=== PATIENT | female | born 1980 | race Caucasian/White ===

== ENCOUNTER 2017-08-26 03:00 | Observation (INO) | payer MEDICARE, OTHER ==
[~2017-08-26] VITALS: Ht 177.8 cm; Wt 73.6 kg
[2017-08-26] VITALS (12 sets, daily range): BP systolic 90–108; BP diastolic 51–57; PULSE 70–104; TEMP 97–102
[2017-08-26] MEDS ORDERED: TOPAMAX200 MG PO (04:26)
[2017-08-26] MEDS ORDERED: LYRICA 150MG C150 MG PO (04:26)
[2017-08-26] MEDS ORDERED: CYMBALTA 60MG60 MG PO (04:27)
[2017-08-26] MEDS ORDERED: LYRICA300 MG PO (04:28)
[2017-08-27 04:24] VITALS: BP 100/58; PULSE 70; TEMP 98.1
[2017-08-27 07:21] VITALS: BP 93/52; PULSE 73; TEMP 98.1
[2017-08-27 11:33] VITALS: BP 96/54; PULSE 81; TEMP 97.8
[2017-08-27 15:25] VITALS: BP 103/53; PULSE 80; TEMP 98.1
[2017-08-27 19:50] VITALS: BP 147/56; BP 98/55; PULSE 118; PULSE 82; TEMP 98.2; TEMP 98.5
[2017-08-28] VITALS: BP 118/65; PULSE 76; TEMP 98.2
[2017-08-28 03:45] VITALS: BP 117/65; PULSE 71; TEMP 98
[2017-08-28 07:18] LABS: BASO # 0.1 (0.0-0.2); BASO % 0.8 % (0.0-2.0); EOS # 0.6 (0.0-0.7); EOS % 7.6 % (0-4.0); GRAN # 5.1 (1.4-6.5); GRAN % 68.8 % (42.2-75.2); LYMPH % 14.1 % (20.0-51.0); MEAN CELL VOLUME 105 fl (80.0-100.0); MEAN CORPUSCULAR HGB CONC 32 g/dl (33.0-37.0); MONO # 0.6 (0.1-0.6); MONO % 8.2 % (1.7-9.3); PLATELET COUNT 159 K/mm3 (130-400); REDCELL DISTRIBUTION WIDTH-CV 14.5 % (11.5-14.5)
[2017-08-28 07:19] LABS: HEMATOCRIT 31.4 % (37.0-47.0); HEMOGLOBIN 9.9 g/dl (12.5-16.0); MEAN CORPUSCULAR HEMOGLOBIN 33 pg (27.0-31.0)
[2017-08-28 07:29] VITALS: BP 103/56; PULSE 73; TEMP 98
[2017-08-28 07:45] LABS: CALCIUM 7.8 mg/dL (8.4-10.2); CREATININE, serum 0.88 mg/dL (0.52-1.25); POTASSIUM 3.5 mmol/L (3.4-5.0)
[2017-08-28 11:44] VITALS: BP 130/76; PULSE 64; TEMP 98.1
[2017-08-28] MEDS ORDERED: CIPRO 500MG TA500 MG PO (13:24)
== END 2017-08-28 14:40 | disposition home or self-care (01) ==
LOC: SURG 03:00
PROVIDERS: Physician Assistant
DX: N20.1 Calculus of ureter (principal); M79.7 Fibromyalgia; G43.909 Migraine, unspecified, not intractable, without status migrainosus; D50.9 Iron deficiency anemia, unspecified; D50.0 Iron deficiency anemia secondary to blood loss (chronic); D72.829 Elevated white blood cell count, unspecified; J40 Bronchitis, not specified as acute or chronic; Z90.710 Acquired absence of both cervix and uterus; Z88.2 Allergy status to sulfonamides
CPT/HCPCS: C1769; C2617; G0378; J1100; J1170; J1200; J1885; J2270; J2405; J2543; J2704; J3010; J7030; Q9967

== ENCOUNTER → 2017-08-31 | Outpatient (CLI) | payer MEDICARE, OTHER ==
[~2017-08-31] MED LIST: CIPRO 500MG TA500 MG PO; CYMBALTA 60MG60 MG PO; LYRICA 150MG C150 MG PO; LYRICA300 MG PO; TOPAMAX200 MG PO
== END ==
LOC: COL.RAD 14:33
DX: R22.43 Localized swelling, mass and lump, lower limb, bilateral (principal)